=== PATIENT | male | born 1945 | race Caucasian/White ===

== ENCOUNTER 2017-11-24 06:30 | Day surgery (SDC) | payer MEDICARE, BC ==
[~2017-11-24 06:30] MED LIST: Lactated Ringers 1,000 ML IV SCH
[2017-11-24] MEDS ORDERED: Propofol 200 MG/20 ML SDV ONE (07:26)
[2017-11-24] MEDS ORDERED: Midazolam 1 MG/ML 2 ML SDV ONE (07:26)
[2017-11-24] MEDS ORDERED: fentaNYL 100 MCG/2 ML SDV ONE (07:26)
--- NOTE | 2017-11-24 15:20 | OR ---
DATE OF PROCEDURE: 11/24/2017 PREOPERATIVE DIAGNOSIS: Colon cancer screening. POSTOPERATIVE DIAGNOSIS: Diverticulosis. PROCEDURE: Colonoscopy to the cecum. ANESTHESIA: IV anesthesia with monitored anesthesia care. INDICATION: This 72-year-old white male is referred for a colonoscopy for colon cancer screening. He undergoes a colonoscopy every 10 years. I counseled him for the procedure including risks and alternatives, and he gave his informed consent to proceed. DESCRIPTION OF PROCEDURE: The patient was placed in the left lateral decubitus position. IV anesthesia was administered by the Anesthesia Service. Time-out was held. A rectal exam was performed, which was unremarkable. The flexible video Olympus colonoscope was introduced through his anus, up his rectum, and out his colon, all the way to the cecum. En route, we saw a few scattered left and right-sided diverticula. There was no bleeding or inflammation associated with any of them. Once the cecum was reached, the scope was slowly withdrawn, examining the mucosa throughout. No additional mucosal abnormalities were noted. The scope was retroflexed in the rectum with the distal rectum appearing unremarkable. The scope was straightened and removed. He tolerated the procedure well. Allen Alex MD /[id number]
== END 2017-11-24 11:03 | disposition home or self-care (01) ==
LOC: JP.SDS 06:30
PROVIDERS: ATTEND Surgery
DX: Z12.11 Encounter for screening for malignant neoplasm of colon (principal); K57.30 Diverticulosis of large intestine without perforation or abscess without bleeding; I10 Essential (primary) hypertension
CPT/HCPCS: 45378; J2250; J2704; J3010; J7120

== ENCOUNTER 2023-06-04 16:17 | Emergency (ER) | payer MEDICARE ==
[2023-06-04] MEDS ORDERED: Acetaminophen 500 MG Tab PO ONE (17:06)
[2023-06-04 17:16] LABS: BASOPHILS ABSOLUTE AUTO 0.06 K/uL (0.00-0.10); BASOPHILS PERCENT AUTO 0.5 % (0.1-1.3); EOSINOPHILS ABSOLUTE AUTO 0.02 K/uL (0.00-0.40); EOSINOPHILS PERCENT AUTO 0.2 % (0.0-5.4); HEMATOCRIT 42.4 % (38.4-49.7); HEMOGLOBIN 15.4 g/dL (12.9-16.9); IMMATURE GRAN ABSOLUTE AUTO 0.05 K/uL (0.00-0.23); IMMATURE GRAN PERCENT AUTO 0.4 % (0.0-0.7); LYMPHOCYTES ABSOLUTE AUTO 1.14 K/uL (0.8-3.3); LYMPHOCYTES PERCENT AUTO 9.5 % (11.4-47.7); MEAN CORPUSCULAR HEMOGLOBIN 32.1 pg (31.6-35.5); MEAN CORPUSCULAR HGB CONC 36.3 g/dL (31.6-35.5); MEAN CORPUSCULAR VOLUME 88.3 fL (81.4-99.0); MONOCYTES ABSOLUTE AUTO 1.22 K/uL (0.20-0.90); MONOCYTES PERCENT AUTO 10.1 % (3.3-12.6); NEUTROPHILS ABSOLUTE AUTO 9.55 K/uL (1.0-7.6); NEUTROPHILS PERCENT AUTO 79.3 % (40.0-78.1); PLATELET COUNT,PLT 196 K/uL (130-375)
[2023-06-04 17:33] LABS: CALCIUM 9.2 mg/dL (8.5-10.1); CREATININE 1.2 mg/dL (0.8-1.3); EST CRCL DRUG DOSING (CG) 48.96 mL/min; POTASSIUM,K 3.8 mmol/L (3.6-5.2)
[2023-06-04 17:34] LABS: ANION GAP 12.8 mmol/L (5.0-14.0)
[2023-06-04 17:54] LABS: LYME AB IgG Negative (Negative); LYME AB IgM Negative (Negative)
== END 2023-06-04 17:15 | disposition home or self-care (01) ==
LOC: JP.ED 16:17
DX: J18.9 Pneumonia, unspecified organism (principal); J22 Unspecified acute lower respiratory infection; E78.00 Pure hypercholesterolemia, unspecified; I10 Essential (primary) hypertension; M19.90 Unspecified osteoarthritis, unspecified site; Z91.041 Radiographic dye allergy status; Z79.899 Other long term (current) drug therapy; Z79.82 Long term (current) use of aspirin; Z20.822 Contact with and (suspected) exposure to COVID-19
CPT/HCPCS: 36415; 71046; 80048; 85025; 86618; 99284; A9270; U0002